=== PATIENT | male | born 1965 | race Caucasian/White ===

== ENCOUNTER 2020-09-21 16:23 | Emergency (ER) | payer MEDICAID, OTHER ==
[~2020-09-21] VITALS: Ht 172.7 cm; Wt 90.7 kg
[2020-09-21 16:56] LABS: Urine WBC None Seen /hpf (0 - 3)
[2020-09-21 17:16] LABS: Urine Bacteria NONE SEEN /hpf (None Seen); Urine Blood 3+ /uL (Negative); Urine Hyaline Cast FEW /lpf (0 - 2); Urine Mucus FEW (None Seen); Urine Specific Gravity 1.031 (1.001-1.035)
[2020-09-21 22:21] VITALS: BP 163/98
== END 2020-09-21 23:52 | disposition home or self-care (01) ==
LOC: ER 16:23
DX: N13.2 Hydronephrosis with renal and ureteral calculous obstruction (principal); I25.2 Old myocardial infarction; E78.00 Pure hypercholesterolemia, unspecified; E78.5 Hyperlipidemia, unspecified
CPT/HCPCS: 74176; 76870; 81001